=== PATIENT | female | born 1990 | race African-American/Black ===

== ENCOUNTER 2018-02-07 13:29 | Emergency (ER) | payer MEDICAID ==
[~2018-02-07] VITALS: Ht 162.6 cm; Wt 68.0 kg
[2018-02-07 13:44] VITALS: BP 118/73
== END 2018-02-07 14:46 | disposition left against medical advice (07) ==
LOC: ER 14:33
DX: N93.9 Abnormal uterine and vaginal bleeding, unspecified (principal); Z53.21 Procedure and treatment not carried out due to patient leaving prior to being seen by health care provider